=== PATIENT | female | born 1945 | race African-American/Black ===

== ENCOUNTER 2018-10-23 16:07 | Emergency (ER) | payer OTHER ==
[~2018-10-23] VITALS: Ht 154.9 cm; Wt 78.9 kg
== END 2018-10-23 19:46 | disposition home or self-care (01) ==
LOC: ER 16:07
DX: J06.9 Acute upper respiratory infection, unspecified (principal)

== ENCOUNTER 2018-11-18 12:05 | Emergency (ER) | payer OTHER ==
[~2018-11-18] VITALS: Ht 154.9 cm; Wt 78.5 kg
== END 2018-11-18 14:28 | disposition home or self-care (01) ==
LOC: ER 12:05
DX: J06.9 Acute upper respiratory infection, unspecified (principal)

== ENCOUNTER → 2020-09-18 09:35 | Outpatient (CLI) | payer OTHER | END | disposition home or self-care (01) | LOC: LAB 09:35 | DX: E03.8 Other specified hypothyroidism (principal); R73.09 Other abnormal glucose; E55.9 Vitamin D deficiency, unspecified; E78.49 Other hyperlipidemia; Z13.228 Encounter for screening for other metabolic disorders; Z12.11 Encounter for screening for malignant neoplasm of colon; D68.62 Lupus anticoagulant syndrome ==

== ENCOUNTER 2020-10-02 11:44 | Outpatient (CLI) | payer OTHER | END 2020-10-02 11:48 | disposition home or self-care (01) | LOC: LAB 11:44 | PROVIDERS: ATTEND Internal Medicine Hematology & Oncology | DX: D68.62 Lupus anticoagulant syndrome (principal) ==

== ENCOUNTER 2021-06-09 15:53 | Outpatient (CLI) | payer OTHER | END 2021-06-09 15:55 | disposition home or self-care (01) | LOC: RAD 15:53 | DX: Z01.818 Encounter for other preprocedural examination (principal) ==

== ENCOUNTER 2024-11-06 09:35 | Outpatient (CLI) | payer OTHER ==
[2024-11-06 10:41] LABS: URINE APPEARANCE Clear; URINE BILIRRUBIN Negative (NEGATIVE); URINE BLOOD Negative; URINE COLOR Yellow; URINE GLUCOSE Negative (NEGATIVE); URINE KETONE Negative (NEGATIVE); URINE LEUKOCYTE Small; URINE NITRATE Negative; URINE PROTEIN Negative (NEGATIVE); URINE UROBILINOGEN 0.2 E.U./dl
[2024-11-06 10:46] LABS: URINE BACTERIA 23.9 uL (0.0-1933); URINE EPITHELIAL CELLS 13.6 uL (0.0-38.8); URINE RBC 2.1 uL (0.0-20.8); URINE WBC 21.5 uL (0.0-23.2)
[2024-11-06 10:57] LABS: URINE CAST 0.00 uL (0.0-1.40)
[2024-11-06 11:37] LABS: BASO % 0.4 % (0.1-1.2); EOS # 0.05 (0.04-0.54); EOS % 1.1 % (0.7-7.0); LYMPH # 1.30 (1.18-3.74); LYMPH % 27.9 % (19.3-53.1); MEAN PLATELET VOLUME 11.60 fl (9.4-12.4); MONO # 0.43 (0.24-0.82); MONO % 9.2 % (4.7-12.5); NEUT # 2.85 (1.56-6.13); NEUT % 61.2 % (34.0-71.1); RED CELL DISTRIBUTION WIDTH 11.9 % (11.6-14.4)
[2024-11-06 12:05] LABS: ERYTHROCYTE SEDIMENTATION RATE 21 mm/hr (0-30)
[2024-11-06 12:15] LABS: ALT/SGPT 22 U/L (12-78); AST/SGOT 21 U/L (15-37); BILIRUBIN TOTAL 0.58 mg/dL (0.3-1.2); BUN CREA RATIO 23 (7.0-25.0); CHOL HDL RATIO 4.3 (0-5.0); CREATININE SERUM 0.71 mg/dL (0.55-1.02); GFR 80.04; GLOBULINA 3.6 G/DL (2.4-3.5); GLUCOSE FASTING 98 mg/dL (65-100); HDL 57 mg/dl (40-60); LDH 215 U/L (84-246); LDL 156 mg/dl (0-130); OSMOLALITY SERUM 284 MOSM/KG (275-295); TSH 2.600 uIU/mL (0.358-3.74); VLDL 32 (0-39)
== END 2024-11-06 09:42 | disposition home or self-care (01) ==
LOC: LAB 09:35
PROVIDERS: ATTEND Internal Medicine Hematology & Oncology
DX: D64.9 Anemia, unspecified (principal); R70.1 Abnormal plasma viscosity; R74.01 Elevation of levels of liver transaminase levels; E78.00 Pure hypercholesterolemia, unspecified; E03.9 Hypothyroidism, unspecified; M19.90 Unspecified osteoarthritis, unspecified site; D68.62 Lupus anticoagulant syndrome; N39.0 Urinary tract infection, site not specified